=== PATIENT | female | born 1965 | race Caucasian/White ===

== ENCOUNTER 2023-01-08 00:16 | Emergency (ER) | payer BC ==
[~2023-01-08] VITALS: Ht 162.6 cm; Wt 104.3 kg
[2023-01-08 00:38] LABS: BASOPHILS % (AUTO) 0 % (0-10); EOSINOPHILS # (AUTO) 0.2 10^3/uL (0.0-0.3); EOSINOPHILS % (AUTO) 3 % (0-10); HEMATOCRIT 39 % (35-52); HEMOGLOBIN 12.7 g/dL (11.5-16.0); LYMPHOCYTES # (AUTO) 2.8 10^3/uL (1.0-4.0); LYMPHOCYTES % (AUTO) 32 % (12-44); MEAN CORPUSCULAR HEMOGLOBIN 29 pg (25-34); MEAN CORPUSCULAR HGB CONC 33 g/dL (32-36); MEAN CORPUSCULAR VOLUME 88 fL (80-99); MEAN PLATELET VOLUME 10.6 fL (9.0-12.2); MONOCYTES # (AUTO) 0.6 10^3/uL (0.0-1.0); MONOCYTES % (AUTO) 7 % (0-12); NEUTROPHILS # (AUTO) 5.1 10^3/uL (1.8-7.8); NEUTROPHILS % (AUTO) 58 % (42-75); PLATELET COUNT 224 10^3/uL (130-400); WHITE BLOOD COUNT 8.8 10^3/uL (4.3-11.0)
[2023-01-08 00:55] LABS: ALBUMIN 4.5 GM/DL (3.2-4.5); CHLORIDE 103 MMOL/L (98-107); POTASSIUM 3.1 MMOL/L (3.6-5.0); SODIUM 141 MMOL/L (135-145)
[2023-01-08 00:56] LABS: CALCIUM 9.9 MG/DL (8.5-10.1)
[2023-01-08 00:57] LABS: GLUCOSE 159 MG/DL (70-105); TOTAL PROTEIN 7.9 GM/DL (6.4-8.2)
[2023-01-08 00:58] LABS: CARBON DIOXIDE 20 MMOL/L (21-32)
[2023-01-08 00:59] LABS: BILIRUBIN,TOTAL 0.5 MG/DL (0.1-1.0)
[2023-01-08 01:01] LABS: ALKALINE PHOSPHATASE 80 U/L (40-136); CREATININE SERUM 1.08 MG/DL (0.60-1.30); GFR ESTIMATED 61
[2023-01-08 01:02] LABS: BUN/CREATININE RATIO 19
[2023-01-08 01:04] LABS: ALANINE AMINOTRANSFERASE 32 U/L (0-55); MAGNESIUM 1.6 MG/DL (1.6-2.4)
[2023-01-08 01:05] LABS: LIPASE 25 U/L (8-78)
[2023-01-08 01:15] LABS: BACTERIA,URINE TRACE /HPF; BILIRUBIN,URINE NEGATIVE (NEGATIVE); CLARITY,URINE CLEAR; COLOR,URINE YELLOW; GLUCOSE, URINE (UA) NEGATIVE (NEGATIVE); KETONES,URINE NEGATIVE (NEGATIVE); LEUKOCYTE ESTERASE ,URINE TRACE (NEGATIVE); NITRITE,URINE NEGATIVE (NEGATIVE); PROTEIN,URINE NEGATIVE (NEGATIVE); SQUAMOUS EPITHELIAL CELL,UR 0-2 /HPF; WBC,URINE 0-2 /HPF
[2023-01-08 01:16] LABS: AMPHETAMINE SCREEN, URINE NEGATIVE (NEGATIVE); BARBITURATE SCREEN URINE NEGATIVE (NEGATIVE); BENZODIAZEPINES SCREEN URINE NEGATIVE (NEGATIVE); CANNABINOID SCREEN, URINE POSITIVE (NEGATIVE); COCAINE SCREEN URINE NEGATIVE (NEGATIVE); METHADONE STAT NEGATIVE (NEGATIVE); OPIATE SCREEN URINE NEGATIVE (NEGATIVE); OXYCODONE STAT NEGATIVE (NEGATIVE); PROPOXYPHENE STAT NEGATIVE (NEGATIVE); TRICYCLIC ANTIDEPRESSANTS SCRE NEGATIVE (NEGATIVE)
[2023-01-08 01:24] LABS: TSH (THYROID ANALYZER) 2.03 UIU/ML (0.35-4.94)
--- NOTE | 2023-01-08 01:24 | ED General ---
General Chief Complaint: Cardiac/General Problems Stated Complaint: LIGHT HEADED,DIZZY Nursing Triage Note: PT TO RM 3 [facility]IA [facility] FROM HOME W C/O RAPID HR, TINGLING EVERYWHERE, NAUSEA, AND WEAKNESS SX 2300 TONIGHT. PT REPORTS SHE TOOK WHAT SHE BELIEVES IS A CBD "GUMMY" AT 2230 THIS PM. PT A&OX4. DENIES PAIN. Allergies and Home Medications Allergies Coded Allergies: aspirin (Verified Allergy, Unknown, 01/08/23) Past Juggtoh-Ljsgbm-Pwliem Hx Patient Social History Tobacco Use?: No Use of E-Cig and/or Vaping dev: No Substance use?: Yes Additional substance use comme: CBD Alcohol Use?: No Physical Exam Vital Signs Vital Signs - First Documented 01/08/23 00:17 Temp 37.0 Pulse 104 Resp 22 B/P (MAP) 167/94 (118) Pulse Ox 100 O2 Delivery Room Air Capillary Refill : Less Than 3 Seconds Height, Weight, BMI Height: '" Weight: lbs. oz. kg; 39.00 BMI Method: Progress/Results/Core Measures Suspected Sepsis SIRS Temperature: Pulse: 104 Respiratory Rate: 22 Laboratory Tests 01/08/23 00:27: White Blood Count 8.8 Blood Pressure 167 /94 Mean: 118 Laboratory Tests 01/08/23 00:27: Creatinine 1.08, Platelet Count 224, Total Bilirubin 0.5 Results/Orders Lab Results Laboratory Tests Test 01/08/23 00:27 01/08/23 00:49 Range/Units White Blood Count 8.8 4.3-11.0 10^3/uL Red Blood Count 4.40 3.80-5.11 10^6/uL Hemoglobin 12.7 11.5-16.0 g/dL Hematocrit 39 35-52 % Mean Corpuscular Volume 88 80-99 fL Mean Corpuscular Hemoglobin 29 25-34 pg Mean Corpuscular Hemoglobin Concent 33 32-36 g/dL Red Cell Distribution Width 12.8 10.0-14.5 % Platelet Count 224 130-400 10^3/uL Mean Platelet Volume 10.6 9.0-12.2 fL Immature Granulocyte % (Auto) 1 % Neutrophils (%) (Auto) 58 42-75 % Lymphocytes (%) (Auto) 32 12-44 % Monocytes (%) (Auto) 7 0-12 % Eosinophils (%) (Auto) 3 0-10 % Basophils (%) (Auto) 0 0-10 % Neutrophils # (Auto) 5.1 1.8-7.8 10^3/uL Lymphocytes # (Auto) 2.8 1.0-4.0 10^3/uL Monocytes # (Auto) 0.6 0.0-1.0 10^3/uL Eosinophils # (Auto) 0.2 0.0-0.3 10^3/uL Basophils # (Auto) 0.0 0.0-0.1 10^3/uL Immature Granulocyte # (Auto) 0.0 0.0-0.1 10^3/uL Sodium Level 141 135-145 MMOL/L Potassium Level 3.1 L 3.6-5.0 MMOL/L Chloride Level 103 98-107 MMOL/L Carbon Dioxide Level 20 L 21-32 MMOL/L Anion Gap 18 H 5-14 MMOL/L Blood Urea Nitrogen 21 H 7-18 MG/DL Creatinine 1.08 0.60-1.30 MG/DL Estimat Glomerular Filtration Rate 61 BUN/Creatinine Ratio 19 Glucose Level 159 H 70-105 MG/DL Calcium Level 9.9 8.5-10.1 MG/DL Corrected Calcium 9.5 8.5-10.1 MG/DL Magnesium Level 1.6 1.6-2.4 MG/DL Total Bilirubin 0.5 0.1-1.0 MG/DL Aspartate Amino Transf (AST/SGOT) 25 5-34 U/L Alanine Aminotransferase (ALT/SGPT) 32 0-55 U/L Alkaline Phosphatase 80 40-136 U/L Troponin I < 0.028 <0.028 NG/ML B-Type Natriuretic Peptide 11.3 <100.0 PG/ML Total Protein 7.9 6.4-8.2 GM/DL Albumin 4.5 3.2-4.5 GM/DL Lipase 25 8-78 U/L Serum Alcohol < 10 <10 MG/DL Urine Color YELLOW Urine Clarity CLEAR Urine pH 6.0 5-9 Urine Specific [place] 1.020 1.016-1.022 Urine Protein NEGATIVE NEGATIVE Urine Glucose (UA) NEGATIVE NEGATIVE Urine Ketones NEGATIVE NEGATIVE Urine Nitrite NEGATIVE NEGATIVE Urine Bilirubin NEGATIVE NEGATIVE Urine Urobilinogen 0.2 < = 1.0 MG/DL Urine Leukocyte Esterase TRACE H NEGATIVE Urine RBC (Auto) NEGATIVE NEGATIVE Urine RBC NONE /HPF Urine WBC 0-2 /HPF Urine Squamous Epithelial Cells 0-2 /HPF Urine Crystals NONE /LPF Urine Bacteria TRACE /HPF Urine Casts NONE /LPF Urine Mucus NEGATIVE /LPF Urine Culture Indicated NO Urine Opiates Screen NEGATIVE NEGATIVE Urine Oxycodone Screen NEGATIVE NEGATIVE Urine Methadone Screen NEGATIVE NEGATIVE Urine Propoxyphene Screen NEGATIVE NEGATIVE Urine Barbiturates Screen NEGATIVE NEGATIVE Ur Tricyclic Antidepressants Screen NEGATIVE NEGATIVE Urine Phencyclidine Screen NEGATIVE NEGATIVE Urine Amphetamines Screen NEGATIVE NEGATIVE Urine Methamphetamines Screen NEGATIVE NEGATIVE Urine Benzodiazepines Screen NEGATIVE NEGATIVE Urine Cocaine Screen NEGATIVE NEGATIVE Urine Cannabinoids Screen POSITIVE H NEGATIVE My Orders Orders - JOHN EVANGELISTA DO Ed Iv/Invasive Line Start (01/08/23 00:22) Ekg Tracing (01/08/23 00:22) Monitor-Rhythm Ecg Trace Only (01/08/23 00:22) Alcohol (01/08/23 00:22) Bnp Javi (01/08/23 00:22) Cbc With Automated Diff (01/08/23 00:22) Comprehensive Metabolic Panel (01/08/23 00:22) Drug Screen Stat (Urine) (01/08/23 00:22) Lipase (01/08/23 00:22) Magnesium (01/08/23 00:22) Thyroid Analyzer (01/08/23 00:22) Ua Culture If Indicated (01/08/23 00:22) Troponin I [place] (01/08/23 00:22) Ed Iv/Invasive Line Start (01/08/23 01:21) Lr 1000ml Iv (01/08/23 01:30) Zofran Iv (01/08/23 01:30) Vital Signs/I&O 01/08/23 00:17 Temp 37.0 Pulse 104 Resp 22 B/P (MAP) 167/94 (118) Pulse Ox 100 O2 Delivery Room Air Capillary Refill : Less Than 3 Seconds Blood Pressure Mean: 118 Departure Impression Primary Impression: Marijuana use 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 Decision time for Depature: 01:23 Referrals: NO,LOCAL PHYSICIAN (PCP/Family) Primary Care Physician Patient Instructions: Marijuana Use and Addiction (DC) Add. Discharge Instructions: HOME, REST NO MARIJUANA OR ANY CBD PRODUCTS TYLENOL AND MOTRIN NEEDED FOR PAIN FOLLOW UP WITH DR. OF CHOICE NEEDED RETURN TO ER IF SYMPTOMS WORSEN All discharge instructions reviewed with patient and/or family. Voiced un derstanding. JOHN EVANGELISTA DO Jan 08, 2023 01:24
[2023-01-08] MEDS ORDERED: ONDANSETRON INJECTION 4 MG/2 ML (SDV) IVP ONE (01:30)
[2023-01-08] MEDS: LACTATED RINGERS 1,000 ML 1,000 ML IV ONE (02:05)
[2023-01-08 02:23] VITALS: BP 121/74
== END 2023-01-08 02:23 | disposition home or self-care (01) ==
LOC: EDUNIT# 00:16 → ER 00:19
DX: F12.90 Cannabis use, unspecified, uncomplicated (principal)
CPT/HCPCS: 36415; 80053; 80306; 80320; 81000; 83690; 83735; 83880; 84443; 84484; 85025; 93005; 93041